=== PATIENT | female | born 1955 | race Caucasian/White ===

== ENCOUNTER 2016-09-02 15:47 | Emergency (ER) | payer SELFPAY ==
[~2016-09-02 15:47] MED LIST: ACETAMINOPHEN500 MG PO; ADVIL200 MG PO; ALBUTEROL17 GM INH; AZITHROMYCIN250 M1 PO; BENADRYL ALLERG25 M1 PO; CHLORASEPTIC LO1 LOZ MM; CIPRO500 MG PO; DULCOLAX10 MG/SUPP RC; DULCOLAX5 MG PO; IBUPROFEN400 MG PO; MAG-AL LIQUID30 ML PO; MEDROL4 MG/DOSE- PO; MILK OF MA400 MG/5 M PO; MUCINEX600 M1 PO; NEURONTIN300 MG PO; NO MEDICATIONS; PREDNISONE20 M1 PO; SENNA PLUS TAB1 EACH PO; SEPTRA DS TABLE1 TAB PO; TESSALON PERLE100 M1 PO; THYROID; TRAMADOL HCL50 MG PO; TUMS500 M1 PO; TYLENOL325 MG PO; ULTRAM50 MG PO; ZITHROMAX250 MG PO
[2016-09-02] MEDS ORDERED: TRAMADOL HCL50 M2 PO (17:13)
[2016-09-02] MEDS ORDERED: PENICILLIN V P500 M1 PO (17:13)
[2016-09-02] MEDS ORDERED: PERIDEX118 ML SSP (17:16)
== END 2016-09-02 17:20 ==
LOC: EDMED 15:47
DX: K04.7 Periapical abscess without sinus (principal); R51 Headache; I10 Essential (primary) hypertension; Z79.899 Other long term (current) drug therapy

== ENCOUNTER 2016-10-16 12:59 | Observation (INO) | payer MEDICARE ==
[~2016-10-16 12:59] MED LIST changes: +PENICILLIN V P500 M1 PO; +PERIDEX118 ML SSP; +TRAMADOL HCL50 M2 PO
[2016-10-16 14:00] LABS: BASO % 0.6 % (0-2); EOSINOPHIL ABSOLUTE COUNT 0.6 tho/cmm (0.0-0.7); HCT-HEMATOCRIT 45.3 % (34.0-49.0); IMMATURE GRANULOCYTES ABSOLUTE 0.02 tho/cmm (0-0.03); IMMATURE GRANULOCYTES PERCENT 0.3 % (0-0.3); LYMPH % 33.5 % (20-45); LYMPH ABSOLUTE COUNT 2.1 tho/cmm (0.8-4.5); MCH (MEAN CORPUSCULAR HGB) 27.3 pg (28.0-32.0); MCHC MEAN CORPUSCULAR HGB CONC 33.1 % (32.0-36.0); MCV (MEAN CELL VOLUME) 82.5 fl (82.0-96.0); MEAN PLATELET VOLUME 11.3 cmc (9.4-12.4); MONO % 6.2 % (0-12); MONOCYTE ABSOLUTE COUNT 0.4 tho/cmm (0.0-1.2); NEUTROPHIL ABSOLUTE COUNT 3.1 tho/cmm (1.6-8.0); NEUTROPHIL-AUTOMATED 3.1 tho/cmm (1.6-8.0); NEUTROPHILS % 49.4 % (40-80); PLATELET COUNT 221 tho/cmm (150-450); RED BLOOD COUNT 5.49 mil/cmm (4.00-5.20); RED CELL DISTRIBUTION WIDTH 12.5 % (12.4-16.4); WHITE BLOOD COUNT 6.3 tho/cmm (4.0-10.0)
[2016-10-16 14:17] LABS: ANION GAP 13 mmol/L (0-20); BLOOD UREA NITROGEN 18 mg/dl (6-24); C-REACTIVE PROTEIN 1.3 mg/dl (0-0.9); CARBON DIOXIDE-VENOUS 27 mmol/L (22-32); CHLORIDE 103 mmol/l (96-110); CREATININE 0.91 mg/dl (0.50-1.10); GLUCOSE 306 mg/dL (70-110); POTASSIUM 3.8 mmol/L (3.7-5.1); SODIUM 139 mmol/L (135-145); eGFR VALUE FOR BLACK 79 mL/Min
[2016-10-16 14:20] LABS: ESR-ERYTHROCYTE SED RATE 11 mm/hr (0-30); TSH-THYROID STIMULATING HORM. 1.93 uIU/ml (0.40-3.80)
[2016-10-16 15:17] LABS: URINE BILIRUBIN NEGATIVE (NEG); URINE BLOOD NEGATIVE (NEG); URINE GLUCOSE (UA) LARGE (NEG); URINE KETONE SMALL (NEG); URINE LEUKOCYTE ESTERASE POSITIVE (NEG); URINE NITRITE NEGATIVE (NEG); URINE PH 6.5 (5.0-8.0); URINE PROTEIN NEGATIVE (NEG)
[2016-10-16 15:18] LABS: URINE APPEARANCE HAZY; URINE COLOR YELLOW
[2016-10-16 15:23] LABS: URINE EPITHELIAL CELLS 0-4 /[HPF] (0-10); URINE RBC 0 /[HPF] (0-5)
[2016-10-16 15:24] LABS: URINE WBC 0-2 /[HPF] (0-5)
[2016-10-18] MEDS ORDERED: GLUCOTROL5 M1 PO (14:52)
[2016-10-18] MEDS ORDERED: GLUCOPHAGE500 M3 PO (14:52)
[2016-10-18] MEDS ORDERED: ULTRAM50 M1 PO (14:53)
[2016-10-18] MEDS ORDERED: ZITHROMAX TRI-500 M1 (14:55)
[2016-10-18] MEDS ORDERED: LIDODERM1 EACH TOP (14:55)
== END 2016-10-18 17:05 ==
LOC: EDMED 12:59 → EMR2 16:30 → CAR1 16:55
PROVIDERS: Emergency Medicine; Internal Medicine; ADMIT Hospitalist
DX: G89.29 Other chronic pain (principal); M54.16 Radiculopathy, lumbar region; E11.9 Type 2 diabetes mellitus without complications; J01.90 Acute sinusitis, unspecified; J30.2 Other seasonal allergic rhinitis; Z88.6 Allergy status to analgesic agent; Z88.5 Allergy status to narcotic agent; Z91.041 Radiographic dye allergy status
CPT/HCPCS: G0378; G8978-GP-CJ; G8979-GP-CI; G8980-GP-CJ; J1170; J1815; J2060; J2405; J7030

== ENCOUNTER 2016-10-23 11:50 | Emergency (ER) | payer MEDICARE ==
[~2016-10-23 11:50] MED LIST changes: +GLUCOPHAGE500 M3 PO; +GLUCOTROL5 M1 PO; +LIDODERM1 EACH TOP; +ULTRAM50 M1 PO; +ZITHROMAX TRI-500 M1
[2016-10-23 12:54] LABS: BASO % 0.4 % (0-2); EOS % 7.1 % (0-7); EOSINOPHIL ABSOLUTE COUNT 0.7 tho/cmm (0.0-0.7); HCT-HEMATOCRIT 46.8 % (34.0-49.0); HGB-HEMOGLOBIN 15.7 gm/dl (12.0-15.5); IMMATURE GRANULOCYTES ABSOLUTE 0.02 tho/cmm (0-0.03); IMMATURE GRANULOCYTES PERCENT 0.2 % (0-0.3); LYMPH % 26.1 % (20-45); LYMPH ABSOLUTE COUNT 2.7 tho/cmm (0.8-4.5); MCH (MEAN CORPUSCULAR HGB) 27.8 pg (28.0-32.0); MCHC MEAN CORPUSCULAR HGB CONC 33.5 % (32.0-36.0); MCV (MEAN CELL VOLUME) 82.8 fl (82.0-96.0); MEAN PLATELET VOLUME 11.2 cmc (9.4-12.4); MONOCYTE ABSOLUTE COUNT 0.5 tho/cmm (0.0-1.2); NEUTROPHIL ABSOLUTE COUNT 6.3 tho/cmm (1.6-8.0); NEUTROPHIL-AUTOMATED 6.3 tho/cmm (1.6-8.0); NEUTROPHILS % 61.2 % (40-80); PLATELET COUNT 324 tho/cmm (150-450); RED BLOOD COUNT 5.65 mil/cmm (4.00-5.20); RED CELL DISTRIBUTION WIDTH 12.4 % (12.4-16.4); WHITE BLOOD COUNT 10.2 tho/cmm (4.0-10.0)
[2016-10-23 13:03] LABS: ANION GAP 14 mmol/L (0-20); BLOOD UREA NITROGEN 16 mg/dl (6-24); CALCIUM 9.9 mg/dl (8.5-10.5); CARBON DIOXIDE-VENOUS 29 mmol/L (22-32); CHLORIDE 99 mmol/l (96-110); CREATININE 0.78 mg/dl (0.50-1.10); GLUCOSE 173 mg/dL (70-110); POTASSIUM 3.9 mmol/L (3.7-5.1); SODIUM 138 mmol/L (135-145); eGFR VALUE FOR BLACK >90 mL/Min
[2016-10-23 13:04] LABS: URINE BILIRUBIN NEGATIVE (NEG); URINE BLOOD NEGATIVE (NEG); URINE GLUCOSE (UA) NEGATIVE (NEG); URINE KETONE NEGATIVE (NEG); URINE LEUKOCYTE ESTERASE POSITIVE (NEG); URINE NITRITE NEGATIVE (NEG); URINE PROTEIN NEGATIVE (NEG)
[2016-10-23 13:05] LABS: URINE APPEARANCE CLEAR; URINE COLOR YELLOW
[2016-10-23 13:09] LABS: URINE BACTERIA 1+; URINE EPITHELIAL CELLS 0-2 /[HPF] (0-10); URINE RBC 0 /[HPF] (0-5); URINE WBC RARE /[HPF] (0-5)
== END 2016-10-23 15:04 ==
LOC: EDMED 11:50
PROVIDERS: Emergency Medicine
DX: R61 Generalized hyperhidrosis (principal); R11.0 Nausea; E11.9 Type 2 diabetes mellitus without complications; Z90.49 Acquired absence of other specified parts of digestive tract; Z79.899 Other long term (current) drug therapy